=== PATIENT | male | born 1930 | race Caucasian/White ===

== ENCOUNTER → 2017-01-24 | Outpatient (CLI) | payer MEDICARE ==
--- NOTE | 2017-01-24 14:52 | US ---
EXAMINATION TYPE: US kidneys/renal and bladder DATE OF EXAM: 01/24/2017 COMPARISON: NONE CLINICAL HISTORY: R93.4 HX OF HYDRONEPHROSIS. EXAM MEASUREMENTS: Right Kidney: 10.2 x 4.7 x 4.1 cm Left Kidney: 14.3 x 6.5 x 5.3 cm Technical limitations due to overlying bowel Right Kidney: possible cystic area upper pole = 1.5 x 1.5 x 1.8cm Left Kidney: enlarged, multiple anechoic areas noted with largest = 5.6 x 4.4 x 6.8cm Bladder: not fully distended, patient uses a catheter to empty bladder 3 times a day, thickened anter ior wall Bilateral Jets seen: no There is no evidence for hydronephrosis at this point in time. Bilateral ureteral jets are not seen. Technologist sarabia 1.5 cm exophytic round hypoechoic to anechoic lesion not definitively consistent with simple cyst as there is no documented increased through transmission and lesion is not completel y anechoic. Bladder is poorly distended and suboptimally evaluated. There is lobulated irregular wall thickening felt present. Left kidney has several prominent but simple appearing cysts. IMPRESSION: No hydronephrosis is evident bilaterally. Lobulated thickened wall poorly distended bladder could ref lect product of neurogenic bladder, underlying infection can have this appearance. Other etiologies a re not excluded. There are several large but simple appearing cysts scattered throughout the left kid eliseo as well as nonspecific 1.5 cm exophytic lesion upper pole level right kidney. Further investigati on with multi phase contrast-enhanced CT or MRI is advised to further evaluate and characterize cysti c renal lesions bilaterally to rule out neoplasm.
== END | disposition home or self-care (01) ==
LOC: RADUSWWP 13:57
PROVIDERS: ATTEND Urology
DX: N28.1 Cyst of kidney, acquired (principal); N32.89 Other specified disorders of bladder; N31.8 Other neuromuscular dysfunction of bladder
CPT/HCPCS: 76770; 82565; 84520